=== PATIENT | male | born 1980 | race Caucasian/White ===

== ENCOUNTER 2020-04-09 10:22 | Inpatient (IN) ==
[2020-04-09 11:51] LABS: Basophils % 0.1 % (0.0-0.8); Hemoglobin 15.3 GM/DL (14.0-18.0); Immature Granulocytes % 1.2 %; Lymphocytes # 0.8 10*3/uL (1.4-4.0); Lymphocytes % 9.6 % (21.2-54.2); Mean Corpuscular Volume 80.9 FL (87-102); Mean Platelet Volume 9.1 FL (9.6-12.0); Monocytes % 9.5 % (1.7-12.7); Neutrophils % 79.6 % (38.7-73.9); Platelet Count 283 T/CUMM (130-400); Red Blood Count 5.56 MC/CUMM (3.8-5.5); Red Cell Distribution Width 13.5 % (9.3-17.3); White Blood Count 8.4 T/CUMM (4-12)
[2020-04-09 12:00] LABS: PT Patient Result 10.6 SECS (9.8-11.9)
[2020-04-09 12:10] LABS: Albumin 3.4 G/DL (3.4-5.0); Bilirubin,Total 0.8 MG/DL (0.2-1.0); Calcium 8.7 MG/DL (8.5-10.1); Ferritin 839.6 ng/ml (26-388); Osmolality,Calculated 272.8 MOS/KG (273-304); Total Protein 7.5 G/DL (6.4-8.3)
[2020-04-09] MEDS ORDERED: DEXAMETHASONE 4 MG/1 ML VIAL IV STA (12:53)
[2020-04-09] MEDS ORDERED: GLUCAGON 1 MG VIAL IM PRN (13:26)
[2020-04-09] MEDS ORDERED: BISACODYL 5 MG TABLET PO PRN (13:26)
[2020-04-09] MEDS ORDERED: DOCUSATE SODIUM 100 MG CAPSULE PO PRN (13:26)
[2020-04-09] MEDS ORDERED: ALBUTEROL/IPRATROPIUM 3 ML NEB RESP TX PRN (13:26)
[2020-04-09] MEDS ORDERED: MORPHINE 4 MG/1 ML VIAL IV PRN (13:26)
[2020-04-09] MEDS ORDERED: hydrALAZINE 20 MG/1 ML VIAL IV PRN (13:26)
[2020-04-09] MEDS ORDERED: ONDANSETRON 4 MG/2 ML VIAL IV PRN (13:26)
[2020-04-09] MEDS ORDERED: DEXTROSE 50% 25 GM/50 ML VIAL IV PRN (13:26)
[2020-04-09] MEDS ORDERED: DEXAMETHASONE 4 MG/1 ML VIAL IV SCH (14:00)
[2020-04-09] MEDS ORDERED: SODIUM CHLORIDE 0.9% 1,000 ML IV STA (14:01)
[2020-04-09] MEDS: SODIUM CHLORIDE 0.9% 1,000 ML IV SCH ×2 (15:05→22:14)
[2020-04-09] MEDS ORDERED: SODIUM CHLORIDE 0.9% 1,000 ML IV PRN (15:30)
[2020-04-09] MEDS ORDERED: REMDESIVIR 200 MG in SODIUM CHLORIDE 0.9% 210 ML IV ONE (16:30)
[2020-04-09] MEDS: CITALOPRAM 20 MG TABLET PO SCH (16:35)
[2020-04-09] MEDS: FENOFIBRATE 145 MG TABLET PO SCH (16:35)
[2020-04-09] MEDS: ENOXAPARIN 40 MG/0.4 ML SYRINGE SUBCUT SCH (16:35)
[2020-04-09] MEDS: guaiFENesin/DM ER 600-30 MG TABLET PO PRN (16:51)
[2020-04-09] MEDS ORDERED: ACETAMINOPHEN 325 MG TABLET PO PRN (21:58)
[2020-04-10] MEDS: SODIUM CHLORIDE 0.9% 1,000 ML IV SCH ×5 (01:34→20:30)
[2020-04-10 05:54] LABS: Basophils % 0.3 % (0.0-0.8); Hemoglobin 14.2 GM/DL (14.0-18.0); Immature Granulocytes % 1.2 %; Immature Granulocytes Absolute 0.08 #; Lymphocytes # 1.3 10*3/uL (1.4-4.0); Lymphocytes % 19.2 % (21.2-54.2); Mean Corpuscular Volume 81.9 FL (87-102); Mean Platelet Volume 9.4 FL (9.6-12.0); Monocytes % 13.8 % (1.7-12.7); Neutrophils % 65.5 % (38.7-73.9); Platelet Count 309 T/CUMM (130-400); Red Blood Count 5.25 MC/CUMM (3.8-5.5); Red Cell Distribution Width 13.4 % (9.3-17.3); White Blood Count 6.8 T/CUMM (4-12)
[2020-04-10 06:02] LABS: PT Patient Result 10.9 SECS (9.8-11.9)
[2020-04-10 06:25] LABS: Bilirubin,Total 1.1 MG/DL (0.2-1.0); Calcium 8.8 MG/DL (8.5-10.1); Ferritin 810.1 ng/ml (26-388); Risk Ratio 6.81; Thyroid Stimulating Hormone 0.267 uIU/ml (0.358-3.74); Total Protein 6.7 G/DL (6.4-8.3)
[2020-04-10 06:27] LABS: Lymphocytes 19 % (20-55); Microcytosis Slight; Nucleated Red Blood Cells 1 (0-5); Platelet Estimate Normal; Segmented Neutrophils 76 % (50-85); Total Cells Counted 100
[2020-04-10 07:04] LABS: Sedimentation Rate-Westergren 50 MM/HR (0-15)
[2020-04-10] MEDS: DEXAMETHASONE 4 MG/1 ML VIAL IV SCH (08:28)
[2020-04-10] MEDS: CITALOPRAM 20 MG TABLET PO SCH (08:28)
[2020-04-10] MEDS: PANTOPRAZOLE 40 MG TABLET PO SCH (08:28)
[2020-04-10] MEDS: hydroCHLOROthiazide 12.5 MG CAPSULE PO SCH (08:28)
[2020-04-10] MEDS: ENALAPRIL 10 MG TABLET PO SCH (08:28)
[2020-04-10] MEDS: guaiFENesin/DM ER 600-30 MG TABLET PO PRN (08:28)
[2020-04-10] MEDS: FENOFIBRATE 145 MG TABLET PO SCH (08:28)
[2020-04-10] MEDS: REMDESIVIR 100 MG in SODIUM CHLORIDE 0.9% 230 ML IV SCH (08:31)
[2020-04-10] MEDS: ENOXAPARIN 40 MG/0.4 ML SYRINGE SUBCUT SCH (16:07)
[2020-04-11] MEDS: SODIUM CHLORIDE 0.9% 1,000 ML IV SCH ×3 (04:53→22:02)
[2020-04-11 06:40] LABS: Basophils % 0.2 % (0.0-0.8); Hematocrit 44.6 VOL% (42.0-52.0); Hemoglobin 14.6 GM/DL (14.0-18.0); Immature Granulocytes % 1.9 %; Immature Granulocytes Absolute 0.11 #; Lymphocytes # 1.7 10*3/uL (1.4-4.0); Lymphocytes % 28.8 % (21.2-54.2); Mean Corpuscular HGB Conc 32.7 GM/DL (32-36); Mean Corpuscular Volume 82.4 FL (87-102); Neutrophils % 52.1 % (38.7-73.9); Platelet Count 378 T/CUMM (130-400); Red Blood Count 5.41 MC/CUMM (3.8-5.5); Red Cell Distribution Width 13.5 % (9.3-17.3); White Blood Count 5.9 T/CUMM (4-12)
[2020-04-11 06:54] LABS: PT Patient Result 11.2 SECS (9.8-11.9)
[2020-04-11 06:55] LABS: Calcium 8.9 MG/DL (8.5-10.1); Osmolality,Calculated 277.5 MOS/KG (273-304)
[2020-04-11 07:03] LABS: Albumin 3.1 G/DL (3.4-5.0); Bilirubin,Total 1.2 MG/DL (0.2-1.0); Calcium 8.9 MG/DL (8.5-10.1); Ferritin 912.9 ng/ml (26-388); Total Protein 6.9 G/DL (6.4-8.3)
[2020-04-11 07:11] LABS: Band Neutrophils 1 % (0-10); Hypochromasia 1+; Lymphocytes 29 % (20-55); Nucleated Red Blood Cells 1 (0-5); Segmented Neutrophils 57 % (50-85); Total Cells Counted 100
[2020-04-11 07:12] LABS: Microcytosis Slight; Platelet Estimate Normal
[2020-04-11] MEDS: CITALOPRAM 20 MG TABLET PO SCH (08:02)
[2020-04-11] MEDS: DEXAMETHASONE 4 MG/1 ML VIAL IV SCH (08:02)
[2020-04-11] MEDS: FENOFIBRATE 145 MG TABLET PO SCH (08:04)
[2020-04-11] MEDS: hydroCHLOROthiazide 12.5 MG CAPSULE PO SCH (08:04)
[2020-04-11] MEDS: PANTOPRAZOLE 40 MG TABLET PO SCH (08:04)
[2020-04-11] MEDS: ENALAPRIL 10 MG TABLET PO SCH (08:05)
[2020-04-11] MEDS: guaiFENesin/DM ER 600-30 MG TABLET PO PRN ×2 (08:05→21:38)
[2020-04-11] MEDS: REMDESIVIR 100 MG in SODIUM CHLORIDE 0.9% 230 ML IV SCH (09:32)
[2020-04-11] MEDS: ENOXAPARIN 40 MG/0.4 ML SYRINGE SUBCUT SCH (15:52)
[2020-04-11] MEDS: guaiFENesin 200 MG/10 ML UDCUP PO PRN (21:38)
[2020-04-12] MEDS: guaiFENesin 200 MG/10 ML UDCUP PO PRN ×2 (02:25→10:40)
[2020-04-12] MEDS: SODIUM CHLORIDE 0.9% 1,000 ML IV SCH ×3 (06:14→21:20)
[2020-04-12 06:28] LABS: Basophils % 0.3 % (0.0-0.8); Eosinophils % 0.3 % (0.00-10.9); Hematocrit 43.4 VOL% (42.0-52.0); Hemoglobin 14.6 GM/DL (14.0-18.0); Immature Granulocytes % 2.2 %; Immature Granulocytes Absolute 0.16 #; Lymphocytes % 27.8 % (21.2-54.2); Mean Corpuscular HGB Conc 33.6 GM/DL (32-36); Mean Corpuscular Volume 80.8 FL (87-102); Mean Platelet Volume 9.1 FL (9.6-12.0); Monocytes % 14.8 % (1.7-12.7); Neutrophils % 54.6 % (38.7-73.9); Platelet Count 425 T/CUMM (130-400); Red Blood Count 5.37 MC/CUMM (3.8-5.5); Red Cell Distribution Width 13.2 % (9.3-17.3); White Blood Count 7.2 T/CUMM (4-12)
[2020-04-12 06:50] LABS: Albumin 3.2 G/DL (3.4-5.0); Bilirubin,Total 0.8 MG/DL (0.2-1.0); Calcium 8.7 MG/DL (8.5-10.1); Ferritin 797.8 ng/ml (26-388); Osmolality,Calculated 270.1 MOS/KG (273-304); Total Protein 7.4 G/DL (6.4-8.3)
[2020-04-12 06:56] LABS: Lymphocytes 19 % (20-55); Platelet Estimate Increased; Segmented Neutrophils 73 % (50-85); Total Cells Counted 100
[2020-04-12 06:57] LABS: Microcytosis Slight
[2020-04-12 07:00] LABS: INR 1.1; PT Patient Result 11.3 SECS (9.8-11.9)
[2020-04-12 07:36] LABS: Sedimentation Rate-Westergren 23 MM/HR (0-15)
[2020-04-12] MEDS: CITALOPRAM 20 MG TABLET PO SCH (08:04)
[2020-04-12] MEDS: guaiFENesin/DM ER 600-30 MG TABLET PO PRN ×2 (08:05→21:20)
[2020-04-12] MEDS: ENALAPRIL 10 MG TABLET PO SCH (08:05)
[2020-04-12] MEDS: DEXAMETHASONE 4 MG/1 ML VIAL IV SCH (08:05)
[2020-04-12] MEDS: PANTOPRAZOLE 40 MG TABLET PO SCH (08:05)
[2020-04-12] MEDS: FENOFIBRATE 145 MG TABLET PO SCH (08:05)
[2020-04-12] MEDS: hydroCHLOROthiazide 12.5 MG CAPSULE PO SCH (08:05)
[2020-04-12] MEDS: REMDESIVIR 100 MG in SODIUM CHLORIDE 0.9% 230 ML IV SCH (08:12)
[2020-04-12] MEDS ORDERED: BENZOCAINE/MENTHOL LOZENGE 18/BOX PO PRN (12:37)
[2020-04-12] MEDS: BENZONATATE 100 MG CAPSULE PO PRN ×2 (12:52→21:20)
[2020-04-12] MEDS: ENOXAPARIN 40 MG/0.4 ML SYRINGE SUBCUT SCH (14:50)
[2020-04-13] MEDS: BENZONATATE 100 MG CAPSULE PO PRN (02:48)
[2020-04-13] MEDS: guaiFENesin 200 MG/10 ML UDCUP PO PRN (02:49)
[2020-04-13] MEDS: SODIUM CHLORIDE 0.9% 1,000 ML IV SCH (05:02)
[2020-04-13 06:00] LABS: Basophils % 0.4 % (0.0-0.8); Eosinophils % 0.4 % (0.00-10.9); Hematocrit 40.9 VOL% (42.0-52.0); Hemoglobin 13.8 GM/DL (14.0-18.0); Immature Granulocytes % 3.6 %; Immature Granulocytes Absolute 0.29 #; Lymphocytes # 1.9 10*3/uL (1.4-4.0); Lymphocytes % 24.3 % (21.2-54.2); Mean Corpuscular HGB Conc 33.7 GM/DL (32-36); Mean Corpuscular Volume 80.8 FL (87-102); Monocytes % 15.8 % (1.7-12.7); Neutrophils % 55.5 % (38.7-73.9); Platelet Count 422 T/CUMM (130-400); Red Blood Count 5.06 MC/CUMM (3.8-5.5)
[2020-04-13 06:15] LABS: Calcium 8.6 MG/DL (8.5-10.1); Osmolality,Calculated 274.7 MOS/KG (273-304)
[2020-04-13 06:20] LABS: Ferritin 705.3 ng/ml (26-388)
[2020-04-13 06:29] LABS: Hypochromasia 1+; Lymphocytes 34 % (20-55); Microcytosis 1+; Platelet Estimate Adequate; Segmented Neutrophils 59 % (50-85); Total Cells Counted 100
[2020-04-13] MEDS: REMDESIVIR 100 MG in SODIUM CHLORIDE 0.9% 230 ML IV SCH (09:31)
[2020-04-13] MEDS: FENOFIBRATE 145 MG TABLET PO SCH (09:33)
[2020-04-13] MEDS: hydroCHLOROthiazide 12.5 MG CAPSULE PO SCH (09:33)
[2020-04-13] MEDS: DEXAMETHASONE 4 MG/1 ML VIAL IV SCH (09:33)
[2020-04-13] MEDS: ENALAPRIL 10 MG TABLET PO SCH (09:33)
[2020-04-13] MEDS: PANTOPRAZOLE 40 MG TABLET PO SCH (09:34)
[2020-04-13] MEDS: CITALOPRAM 20 MG TABLET PO SCH (09:34)
[2020-04-13 11:18] VITALS: BP 143/81
== END 2020-04-13 14:55 | disposition home or self-care (01) | DRG 177 ==
LOC: N.ED 10:22 → N.EDINP 13:26 → SUATTDRO 13:26 → N.2E 14:50
PROVIDERS: ADMIT Internal Medicine Critical Care Medicine; ATTEND Internal Medicine